=== PATIENT | female | born 1950 | race Caucasian/White ===

== ENCOUNTER → 2016-06-21 | Outpatient (CLI) | payer OTHER | LOC: RAD 12:26 | DX: M25.551 Pain in right hip (principal) ==

== ENCOUNTER 2019-09-16 23:20 | Emergency (ER) | payer OTHER ==
[~2019-09-16] VITALS: Ht 154.9 cm; Wt 72.6 kg
[2019-09-16] MEDS ORDERED: PREVACID30 MG PO (23:29)
[2019-09-16] MEDS ORDERED: TOPROL XL50 MG PO (23:29)
[2019-09-16] MEDS ORDERED: RAYOS5 MG PO (23:29)
[2019-09-16] MEDS ORDERED: PLAQUENIL200 MG PO (23:29)
[2019-09-16] MEDS ORDERED: CHILDREN'S ASPI81 M1 PO (23:30)
[2019-09-16] MEDS ORDERED: NORCO 5-325 TA1 EAC1 PO (23:30)
[2019-09-17 00:59] VITALS: BP 118/88
== END 2019-09-17 01:15 | disposition home or self-care (01) ==
LOC: ER 23:20
DX: M35.00 Sjogren syndrome, unspecified (principal); M77.9 Enthesopathy, unspecified; M25.561 Pain in right knee; Z79.899 Other long term (current) drug therapy; Z79.82 Long term (current) use of aspirin; Z91.040 Latex allergy status; Z88.2 Allergy status to sulfonamides; Z88.1 Allergy status to other antibiotic agents; Z88.6 Allergy status to analgesic agent